=== PATIENT | male | born 1985 | race Caucasian/White ===

== ENCOUNTER 2017-01-18 22:16 | Emergency (ER) | payer MEDICAID ==
[2017-01-18] MEDS ORDERED: TETANUS/DIPHTHERIA/PERTUSSIS 0.5 ML SYRINGE IM ONE ×2 (22:25→23:06)
== END 2017-01-18 23:15 | disposition home or self-care (01) ==
DX: S61.412A Laceration without foreign body of left hand, initial encounter (principal); W25.XXXA Contact with sharp glass, initial encounter; Y93.89 Activity, other specified; Z23 Encounter for immunization; R03.0 Elevated blood-pressure reading, without diagnosis of hypertension

== ENCOUNTER 2017-08-17 06:05 | Outpatient (CLI) | payer MEDICAID | END 2017-08-17 06:06 | disposition critical access hospital (66) | LOC: EMS 06:05 | PROVIDERS: ATTEND Surgery | DX: N50.812 Left testicular pain (principal) | CPT/HCPCS: A0425; A0429 ==

== ENCOUNTER 2017-08-17 06:14 | Emergency (ER) | payer MEDICAID ==
[2017-08-17] MEDS ORDERED: MORPHINE 10 MG/ML VIAL IVP STA (06:18)
[2017-08-17] MEDS ORDERED: SODIUM CHLORIDE 0.9% 1,000 ML IV ONE (06:19)
[2017-08-17] MEDS ORDERED: ONDANSETRON 4 MG/2 ML VIAL IVP STA (06:20)
[2017-08-17] MEDS ORDERED: MORPHINE 10 MG/ML VIAL ONE (06:25)
[2017-08-17] MEDS ORDERED: ONDANSETRON 4 MG/2 ML VIAL ONE (06:25)
--- NOTE | 2017-08-17 06:48 | ED Physician Documentation ---
PD HPI MALE - Stated complaint Stated Complaint: ABD PAIN - Chief complaint Chief Complaint: Abd Pain - History obtained from History obtained from: Patient - History of Present Illness Timing - onset: How many weeks ago (1) Timing - details: Gradual onset, Still present Associated symptoms: Unable to urinate, Testiclar pain, Scrotal swelling. No: Urinary frequency PD HPI MALE CONTRIB FACTORS: Sexually active Similar symptoms before: Has not had sx before Recently seen: Not recently seen - Additional information Additional information: Patient is a 31 year old male with no significant past medical history who is presenting to the emergency department for scrotal pain. patient states that the symptoms have been going on for the last week and have become progressively worse. patient states that he left testical is getting more and more swollen. Patient is sexually active and sometimes uses protection. Review of Systems Constitutional: denies: Fever, Chills Eyes: denies: Decreased vision Ears: denies: Ear pain, Drainage/discharge Nose: denies: Congestion Throat: denies: Sore throat Cardiac: denies: Chest pain / pressure GI: reports: Abdominal Pain, Nausea. denies: Vomiting, Constipation, Diarrhea : reports: Unable to Void, Testicular pain, Testicular mass. denies: Dysuria , Discharge Skin: denies: Rash, Lesions Neurologic: denies: Generalized weakness, Focal weakness Immunocompromised: denies: Immunocompromised PD PAST MEDICAL HISTORY - Past Medical History Past Medical History: Yes Psych: Depression - Past Surgical History Past Surgical History: No - Present Medications Home Medications: Ambulatory Orders Medication Instructions Recorded Confirmed No Known Home Medications [No 08/17/17 08/17/17 Known Home Medications] - Allergies Allergies/Adverse Reactions: Allergies Allergy/AdvReac Type Severity Reaction Status Date / Time diphenhydramine HCl * Allergy Hives Verified 08/17/17 06:19 [From Benadryl] - Social History Does the pt smoke?: No Smoking Status: Never smoker Does the pt drink ETOH?: No Does the pt have substance abuse?: Yes - Immunizations Immunizations are current?: Yes - POLST Patient has POLST: No PD ED PE NORMAL - Vitals Vital signs reviewed: Yes - General General: Alert and oriented X 3 - HEENT HEENT: Atraumatic, PERRL - Neck Neck: Supple, no meningeal sign - Cardiac Cardiac: RRR, No murmur - Respiratory Respiratory: No respiratory distress - Abdomen Abdomen: Soft, Non distended - Derm Derm: Normal color, Warm and dry, No rash - Extremities Extremities: No deformity, No tenderness to palpate, No edema - Neuro Neuro: Alert and oriented X 3, wheat grower 2-12 intact, No motor deficit, No sensory deficit, Normal speech - Psych Psych: Normal mood PD ED PE EXPANDED - General General: Alert, In Pain - HEENT HEENT: Dry mucous membranes - Abdomen Abdomen: No: Distended, Tender to palpation, Rebound, Guarding - Male Male : Tenderness, Other (left testicle is swollen and tender) Results - Vitals Vitals: Vital Signs - 24 hr 08/17/17 06:15 Temperature 36.7 C Heart Rate 90 Respiratory 22 Rate Blood Pressure 116/91 H O2 Saturation 99 Oxygen O2 Source Room air PD MEDICAL DECISION MAKING - ED course Complexity details: reviewed old records, reviewed results, re-evaluated patient , considered differential, d/w patient ED course: Patient was seen and examined at bedside. IV access was gained. urine and ultrasound were ordered. Patient was treated with zofran, morphine and fluids. patient was still in pain and treated with an additional 1mg of dilaudid. Patient was signed over to Dr. Iverson pending ultrasound and disposition.
[2017-08-17] MEDS ORDERED: HYDROmorphone 1 MG/ML CARPUJECT IVP STA (06:54)
[2017-08-17] MEDS ORDERED: HYDROmorphone 1 MG/ML CARPUJECT ONE (06:59)
--- NOTE | 2017-08-17 07:45 | ED Physician Documentation ---
PD HPI MALE - Stated complaint Stated Complaint: ABD PAIN - Chief complaint Chief Complaint: Abd Pain - History obtained from History obtained from: Patient PD PAST MEDICAL HISTORY - Past Medical History Past Medical History: Yes Psych: Depression - Past Surgical History Past Surgical History: No - Present Medications Home Medications: Ambulatory Orders Medication Instructions Recorded Confirmed Doxycycline Hyclate 100 mg PO BID #20 capsule 08/17/17 HYDROcod/ACETAM 5/325 [[place] 5/325] 1 - 2 ea PO Q6H PRN #15 tablet 08/17/17 - Allergies Allergies/Adverse Reactions: Allergies Allergy/AdvReac Type Severity Reaction Status Date / Time diphenhydramine HCl * Allergy Hives Verified 08/17/17 06:19 [From Benadryl] - Social History Does the pt smoke?: No Smoking Status: Never smoker Does the pt drink ETOH?: No Does the pt have substance abuse?: Yes - Immunizations Immunizations are current?: Yes - POLST Patient has POLST: No Results - Vitals Vitals: Vital Signs - 24 hr 08/17/17 08/17/17 08/17/17 06:15 06:58 08:02 Temperature 36.7 C 36.7 C Heart Rate 90 86 88 Respiratory 22 18 16 Rate Blood Pressure 116/91 H 134/82 H 132/69 H O2 Saturation 99 99 96 08/17/17 10:03 Temperature 36.4 C L Heart Rate 92 Respiratory 16 Rate Blood Pressure 131/76 H O2 Saturation 98 Oxygen O2 Source Room air - Labs Labs: Laboratory Tests 08/17/17 08:05 Urine Color YELLOW Urine Clarity CLEAR Urine pH 8.0 H Ur Specific [place] 1.020 Urine Protein NEGATIVE Urine Glucose (UA) NEGATIVE Urine Ketones NEGATIVE Urine Occult Blood NEGATIVE Urine Nitrite NEGATIVE Urine Bilirubin NEGATIVE Urine Urobilinogen 0.2 (NORMAL) Ur Leukocyte Esterase NEGATIVE Ur Microscopic Review NOT INDICATED Urine Culture Comments NOT INDICATED - Rads (name of study) testicular ultrasound Radiology: Prelim report reviewed (Impression: 1. Mildly enlarged left epididymis with increased vascularity consistent with epididymitis. 2. Normal bilateral testes.), EMP read indepedently, See rad report PD MEDICAL DECISION MAKING - ED course Complexity details: reviewed old records, reviewed results, re-evaluated patient , considered differential, d/w patient ED course: 31-year-old homosexual male with a epididymitis to the left testicle is in a lot of pain. His care was turned over to me by Dr. Colon this morning at shift change. See his note for details of history and physical. Here in the emergency department he is administered Dilaudid morphine and Toradol. In addition he is given intravenous Rocephin and Zithromax for treatment of STD. Departure - Departure Disposition: Home, Self Care Clinical Impression: Epididymitis Condition: Stable Instructions: ED Epididymitis Follow-Up: [facility] [Provider Group] Prescriptions: Doxycycline Hyclate 100 mg PO BID #20 capsule HYDROcod/ACETAM 5/325 [[place] 5/325] 1 - 2 ea PO Q6H PRN #15 tablet PRN Reason: Pain Discharge Date/Time: 08/17/17 10:15
--- NOTE | 2017-08-17 07:53 | Ultrasound Preliminary Report ---
Exam: US Testicle w/Doppler IMPRESSION: 1. Mildly enlarged left epididymis with increased vascularity consistent with epididymitis. 2. Normal bilateral testes [facility] SITE ID: [id number]
--- NOTE | 2017-08-17 07:55 | Ultrasound Report ---
EXAM: SCROTAL ULTRASOUND EXAM DATE: 08/17/2017 07:33 AM. CLINICAL HISTORY: Left testicular pain and swelling. COMPARISON: None. TECHNIQUE: Real-time scanning was performed with static images obtained. Both color-flow and Doppler spectral analysis were utilized. FINDINGS: Right: Testis: 4.4 x 2.3 x 3.1 cm. Normal size and echotexture. No mass, calcification, or abnormal blood fl ow. Epididymis: 1.2 x 0.8 x 1.2 cm. Normal size and echotexture. No mass or abnormal blood flow. Hydrocele: None. Varicocele: None. Left: Testis: 4.8 x 3.1 x 3.4 cm. Normal size and echotexture. No mass, calcification, or abnormal blood fl ow. Epididymis: 1.7 x 1.1 x 1.4 cm. Enlarged, increased vascularity Hydrocele: Small Varicocele: None. IMPRESSION: 1. Mildly enlarged left epididymis with increased vascularity consistent with epididymitis. 2. Normal bilateral testes [facility] Referring Provider Line: [phone] SITE ID: [id number]
[2017-08-17] MEDS ORDERED: cefTRIAXone 1 GM in SODIUM CHLORIDE 0.9% MINIBAG 100 ML IV STA (08:17)
[2017-08-17] MEDS ORDERED: AZITHROMYCIN INJ 500 MG in SODIUM CHLORIDE 0.9% 250 ML IV STA (08:17)
[2017-08-17] MEDS ORDERED: KETOROLAC 60 MG/2 ML VIAL IVP STA (08:17)
[2017-08-17 08:19] LABS: BILIRUBIN,URINE NEGATIVE (NEGATIVE)
[2017-08-17 08:20] LABS: UA CHARGE (STRIP ONLY) YES; UR CULTURE IF IND NOT INDICATED
[2017-08-17] MEDS ORDERED: KETOROLAC 60 MG/2 ML VIAL ONE (08:24)
[2017-08-17] MEDS ORDERED: cefTRIAXone 1 GM VIAL ONE (08:25)
[2017-08-17] MEDS ORDERED: SODIUM CHLORIDE FLUSH 0.9% 10 ML SYRINGE IVP ONE (08:25)
[2017-08-17 10:04] VITALS: BP 131/76
== END 2017-08-17 10:15 | disposition home or self-care (01) ==
LOC: EDUNIT# → ED 06:14
DX: N45.1 Epididymitis (principal)
CPT/HCPCS: 76870; 81003; 87491; 87591; 93975; 96361; 96365; 96366; 96375; 99284; J1170; 81001; 87086

== ENCOUNTER 2017-08-19 12:12 | Emergency (ER) | payer MEDICAID ==
--- NOTE | 2017-08-19 13:16 | ED Physician Documentation ---
PD HPI ABD PAIN - Stated complaint Stated Complaint: ABD PAIN - Chief complaint Chief Complaint: Abd Pain - History obtained from History obtained from: Patient - History of Present Illness Timing - onset: How many days ago (3) Timing - duration: Days (3) Timing - details: Abrupt onset, Still present Quality: Aching, Pain Location: Other (left testicle to left lower abdomen.) Radiation: Lower back Worsened by: Moving, Palpation Associated symptoms: Nausea, Dysuria, Loss of appetite, Testicular pain (and swelling). No: Fever, Vomiting, Hematuria Similar symptoms before: Has not had sx before Recently seen: Emergency Dept (seen 2 days ago at onset of pain and had U/S showing normal flow in testicle and increased flow in epididymis. Treated as epididymitis. He says he has had increased pain and swelling in left testicle since that time.) Review of Systems Constitutional: denies: Fever, Chills GI: reports: Abdominal Pain, Nausea. denies: Vomiting, Diarrhea : reports: Dysuria, Testicular pain, Testicular mass Skin: denies: Rash, Lesions Neurologic: denies: Generalized weakness PD PAST MEDICAL HISTORY - Past Medical History Neuro: None Endocrine/Autoimmune: None Psych: Depression - Past Surgical History Past Surgical History: No - Present Medications Home Medications: Ambulatory Orders Medication Instructions Recorded Confirmed Doxycycline Hyclate 100 mg PO BID #20 capsule 08/17/17 08/19/17 HYDROcod/ACETAM 5/325 [[place] 5/325] 1 - 2 ea PO Q6H PRN #15 tablet 08/17/1703/02 - Allergies Allergies/Adverse Reactions: Allergies Allergy/AdvReac Type Severity Reaction Status Date / Time diphenhydramine HCl * Allergy Hives Verified 08/19/17 12:23 [From Benadryl] - Social History Does the pt smoke?: No Smoking Status: Never smoker Does the pt drink ETOH?: No Does the pt have substance abuse?: Yes - Immunizations Immunizations are current?: Yes - POLST Patient has POLST: No PD ED PE NORMAL - Vitals Vital signs reviewed: Yes - General General: Alert and oriented X 3, No acute distress, Well developed/nourished - Abdomen Abdomen: Soft, Non tender - Male Male : Other (right testicle and scrotum feel normal. Left testicle/scrotum with marked swelling and firmness. There is some fullness in inguinal area. Penis without sores/rash/discharge. ) - Back Back: No CVA TTP - Derm Derm: Normal color, Warm and dry Results - Vitals Vitals: Vital Signs - 24 hr 08/19/17 08/19/17 08/19/17 12:17 14:06 15:22 Temperature 36.1 C L 36.5 C Heart Rate 108 H 111 H 97 Respiratory 18 16 16 Rate Blood Pressure 122/78 150/90 H 121/75 O2 Saturation 99 100 99 Oxygen O2 Source Room air - Labs Labs: Laboratory Tests 08/19/17 13:55 Urine Color DARK YELLOW Urine Clarity CLEAR Urine pH 6.0 Ur Specific [place] 1.025 Urine Protein 30 H Urine Glucose (UA) NEGATIVE Urine Ketones NEGATIVE Urine Occult Blood NEGATIVE Urine Nitrite NEGATIVE Urine Bilirubin NEGATIVE Urine Urobilinogen 0.2 (NORMAL) Ur Leukocyte Esterase NEGATIVE Urine RBC 0-5 Urine WBC 6-10 H Ur Squamous Epith Cells NONE SEEN Urine Crystals 0-2 Calcium Oxalate Urine Bacteria Moderate H Urine Mucus Marked Strands Ur Microscopic Review INDICATED Urine Culture Comments INDICATED - Rads (name of study) testicle U/S Radiology: Prelim report reviewed, Discussed with rads (no flow in left testicle. Fluid surrounding the testicle, consider abscess. ) PD MEDICAL DECISION MAKING - ED course Complexity details: d/w regional engagement consultant (Dr. Stephens, Urology in [place], to have patient go directly to admissions desk and be admitted for emergent surgery. NPO on the way. He says he has a friend coming to give him a ride, and prefers PV rather than ambulance transfer. ) Departure - Departure Disposition: 02 Transfer Acute Care Hosp Clinical Impression: Torsion of left testicle, Testicular abscess Condition: Stable Record reviewed to determine appropriate education?: Yes Follow-Up: Shiva Stephens MD [Physician No Access] - Comments: Nothing to eat or drink. Go directly to [facility] and go to the admissions office (not the ER) where he will be admitted for surgery. Dr. Stephens will take you to the OR for evaluation of the testicle and scrotum. There is concern for torsion or abscess or both, both of which would need surgical intervention. Forms: Activity restrictions
[2017-08-19] MEDS: oxyCOD/ACETAMIN 5 MG/325 MG TABLET PO STA (13:53)
[2017-08-19] MEDS ORDERED: oxyCOD/ACETAMIN 5 MG/325 MG TABLET PO ONE (13:56)
[2017-08-19 14:39] LABS: BILIRUBIN,URINE NEGATIVE (NEGATIVE); UA w/ MICROSCOPIC CHARGE YES
[2017-08-19 14:47] LABS: UR CULTURE IF IND INDICATED
[2017-08-19 15:23] VITALS: BP 121/75
[2017-08-19] MEDS ORDERED: cefTRIAXone 1 GM VIAL ONE (16:04)
[2017-08-19] MEDS ORDERED: SODIUM CHLORIDE FLUSH 0.9% 10 ML SYRINGE IVP ONE (16:05)
[2017-08-19] MEDS: cefTRIAXone 1 GM in SODIUM CHLORIDE 0.9% MINIBAG 100 ML IV STA (16:12)
--- NOTE | 2017-08-19 16:58 | Ultrasound Report ---
SCROTAL DUPLEX: 08/19/2017 CLINICAL INDICATION: Worse swelling and pain left scrotum. TECHNIQUE: Real-time sonographic vascular imaging was performed by the clay worker through the scrotu m utilizing both color-flow and Doppler spectral analysis. Multiple new accounts banking representative static images wer e saved for review. COMPARISON: 08/17/2017. FINDINGS: The right testicle measures 4.6 x 3.2 x 2.5 cm. It demonstrates normal echotexture and ashok w. The right epididymis is unremarkable. No right hydrocele or varicocele is seen. The left testicle measures 4.6 x 3.3 x 3.0 cm. It is heterogeneous, and Doppler flow cannot be obtain ed within the testicular parenchyma, compatible with torsion. The left epididymis remains enlarged an d hypervascular, and there is a new complex collection around the medial side of the left testicle, c ompatible with intrascrotal abscess. Diffuse skin thickening is present. IMPRESSION: 1. ABSENT DOPPLER FLOW IN A HETEROGENEOUS LEFT TESTICLE, COMPATIBLE WITH TORSION. 2. COMPLEX FLUID COLLECTION AROUND THE LEFT TESTICLE, COMPATIBLE WITH ABSCESS. HYPERVASCULAR LEFT EPI DIDYMIS. 3. DIFFUSE LEFT-SIDED SKIN THICKENING. CRITICAL RESULTS: RESULTS CALLED TO DR. BELL IN THE EMERGENCY DEPARTMENT ON 08/19/2017 AT 3:30 PM. JOB #: [id number] EXT JOB #:[id number]
== END 2017-08-19 16:30 | disposition short-term general hospital (02) ==
LOC: ED 12:12
DX: N44.00 Torsion of testis, unspecified (principal); N45.4 Abscess of epididymis or testis
CPT/HCPCS: 76870; 81001; 81003; 87086; 93976; 96374; 99283; 99284